=== PATIENT | male | born 1980 | race Caucasian/White ===

== ENCOUNTER 2017-07-21 05:13 | Emergency (ER) | payer OTHER ==
[~2017-07-21] VITALS: Ht 170.2 cm; Wt 170.1 kg
[~2017-07-21 05:13] MED LIST: CIPRO 500MG TA500 MG PO; ZOFRAN4 M1 SL
--- NOTE | 2017-07-21 05:28 | ED UPPER/LOWER EXTREMITY COMPL ---
History of Present Illness General Chief Complaint: Foot or Ankle Injury Stated Complaint: S/P FALL C/O LT ANKLE PAIN Source: patient Exam Limitations: no limitations Vital Signs & Intake/Output Vital Signs & Intake/Output Vital Signs Date Time Temp Pulse Resp B/P B/P Pulse O2 O2 Flow FiO2 Mean Ox Delivery Rate 07/21 0540 98 Room Air 07/21 0530 98.8 88 18 147/87 97 Room Air Allergies Coded Allergies: MDX - Clindamycin (UNKNOWN 09/28/13) Reconcile Medications Allopurinol 100 MG TABLET 1 TAB PO DAILY GOUT (Reported) Amlodipine Besylate 5 MG TABLET 1 TAB PO DAILY HTN (Reported) Ibuprofen 800 MG TABLET 1 TAB PO TID PRN pain Lisinopril 20 MG TABLET 1 TAB PO DAILY HTN (Reported) Oxycodone HCl/Acetaminophen (Percocet 5-325 MG Tablet) 5 MG-325 MG TABLET 1 TAB PO 4XDP PRN PAIN TEN...[id number] Triage Nurses Notes Reviewed? yes Onset: Abrupt Duration: hour(s): Timing: single episode today Severity: moderate Pain/Injury Location: Left: Ankle. Method of Injury: fall No Modifying Factors: none Modifying Factors: Worsens With: movement. Associated Symptoms: swelling HPI: 37 yo gentleman presents with left ankle pain after a fall. He shares, "I slipped on some icy grass... I knew that something bad happened." He notes swelling and pain with minimal movement. He notes no other injury. Past History Travel History Traveled to [place] past 21 day No Medical History Any Pertinent Medical History? see below for history Renal: KIDNEY STONES BLADDER INFECTIONS Musculoskeletal: CELLULITIS History of MRSA: No History of VRE: No History of CDIFF: No Influenza Vaccine: 03/14/13 Surgical History Surgical History: none Psychosocial History Who do you live with Family Services at Home None What is your primary language [place] Family History Family History, If Any: FATHER FH: diabetes mellitus Gout FATHER Hx Contributory? No Review of Systems Review of Systems Constitutional: Reports: no symptoms. EENTM: Reports: no symptoms. Respiratory: Reports: no symptoms. Cardiovascular: Reports: no symptoms. Gastrointestinal/Abdominal: Reports: no symptoms. Genitourinary: Reports: no symptoms. Musculoskeletal: Reports: no symptoms. Skin: Reports: no symptoms. Neurological/Psychological: Reports: no symptoms. Hematologic/Endocrine: Reports: no symptoms. Immunological: Reports: no symptoms. All Other Systems: Reviewed and Negative Physical Exam Physical Exam General Appearance: well developed/nourished, mild distress Head: atraumatic Eyes: Bilateral: normal appearance. Ears, Nose, Throat: normal pharynx, normal ENT inspection, hearing grossly normal Neck: normal inspection, supple Cardiovascular/Respiratory: regular rate/rhythm Back: normal inspection Leg Left: left ankle with significant swelling and tenderness at medial malleolus, no obvious bony deformity. 2+ distal pulse, 2cm elliptical abrasion on medial aspect. Skin: intact, normal color, warm/dry Lymphatic: no anterior cervical tashi Progress Differential Diagnosis: contusion, dislocation, fracture, sprain Plan of Care: Orders Procedure Date/time Status Durable Medical Equipment 07/21 635 Active Diagnostic Imaging: Viewed by Me: Radiology Read. Discussed w/RAD: Radiology Read. Radiology Impression: PATIENT: PERNELL PALMER JR PRESENT AGE: 37 PATIENT ACCOUNT NO: [id number] : 79 LOCATION: [facility] ORDERING PHYSICIAN: Royal Nunez MD SERVICE DATE: 07/21/17 EXAM TYPE: RAD - XRY-ANKLE 3 OR MORE VIEWS L; XRY-FOOT COMPLETE, LEFT EXAMINATION: 1. LEFT ANKLE. 2. LEFT FOOT. CLINICAL INFORMATION: Pain after a fall. COMPARISON: None TECHNIQUE: 1. Left ankle. 3 views 2. Left foot. 3 views FINDINGS: 1. Left ankle. There is an oblique fracture of lateral malleolus at synchondrosis. Fracture is minimally displaced. No fracture of tibia. The ankle mortise remains congruent. There is diffuse soft tissue swelling around the ankle. 2. Left foot. No fracture. No dislocation. Joint spaces are normal. IMPRESSION: 1. Left ankle. Oblique fracture lateral malleolus. 2. Left foot. Normal. DICTATED BY: Dae Powell MD DATE/TIME DICTATED:07/21/17623 SEARCH OPTIMIZATION ANALYST:ADAIR DATE/TIME TRANSCRIBED:07/21/17623 CONFIDENTIAL, DO NOT COPY WITHOUT APPROPRIATE AUTHORIZATION. <Electronically signed in Other Vendor System> SIGNED BY: Dae Powell MD 07/21/17628 Departure Departure Disposition: HOME OR SELF CARE Condition: Stable Clinical Impression Primary Impression: Closed left ankle fracture Referrals: Lyle Gutierrez DO (PCP/Family) Departure Forms: Customer Survey General Discharge Information Prescriptions: Current Visit Scripts Ibuprofen 1 TAB PO TID PRN pain #30 TAB Oxycodone HCl/Acetaminophen (Percocet 5-325 MG Tablet) 1 TAB PO 4XDP PRN PAIN #10 TAB TEN...[id number] Procedures Splinting Location: left ankle Manual Alignment Performed: No Hand-Made Type: orthoglass Splint: sugar-tong, posterior walking Splint Applied By: splint applied by me Pre-Proc Neuro Vasc Exam: normal Post-Proc Neuro Vasc Exam: normal
[2017-07-21 05:30] VITALS: BP 147/87
[2017-07-21] MEDS ORDERED: LISINOPRIL20 M1 PO (05:33)
[2017-07-21] MEDS ORDERED: AMLODIPINE BESYL5 M1 PO (05:33)
[2017-07-21] MEDS ORDERED: ALLOPURINOL100 M1 PO (05:33)
--- NOTE | 2017-07-21 06:29 | RADIOLOGY REPORT ---
EXAMINATION: 1. LEFT ANKLE. 2. LEFT FOOT. CLINICAL INFORMATION: Pain after a fall. COMPARISON: None TECHNIQUE: 1. Left ankle. 3 views 2. Left foot. 3 views FINDINGS: 1. Left ankle. There is an oblique fracture of lateral malleolus at synchondrosis. Fracture is minimally displaced. No fracture of tibia. The ankle mortise remains congruent. There is diffuse soft tissue swelling around the ankle. 2. Left foot. No fracture. No dislocation. Joint spaces are normal. IMPRESSION: 1. Left ankle. Oblique fracture lateral malleolus. 2. Left foot. Normal.
[2017-07-21] MEDS ORDERED: PERCOCET 5-3251 EACH PO (06:35)
[2017-07-21] MEDS ORDERED: IBUPROFEN800 M1 PO (06:35)
== END 2017-07-21 06:39 ==
LOC: ERH 05:13
DX: S82.62XA Displaced fracture of lateral malleolus of left fibula, initial encounter for closed fracture (principal); W00.0XXA Fall on same level due to ice and snow, initial encounter; Y93.9 Activity, unspecified; Y92.9 Unspecified place or not applicable
CPT/HCPCS: 73610-LT; 73630-LT; 96372; J1885